=== PATIENT | female | born 2005 | race Asian ===

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

== ENCOUNTER 2024-03-26 08:05 | Outpatient (AMB) | payer OTHER, SELFPAY ==
--- NOTE | 2024-03-26 08:37 | MHC.OFFVIS ---
Vital Signs 03/26/24 08:54 Height 5 ft 6 in Weight 135 lb BMI 21.8 BP 110/78 Blood Pressure Location Lt brachial Pulse 72 Pulse Source Palpation Intake Visit Reasons: Neck pain Intake Note: Patient presents for neck pain. Search Engine Optimizer Required: No Allergies Seasonal Allergies Allergy (Mild, Verified 03/26/24 08:38) Drowsy carrots Allergy (Mild, Uncoded 03/26/24 08:38) rash HPI Comments Details: 18y/o right handed female comes for further management of her TMJ , neck pain and cervical dystonia. She started with right jaw pain over 5 years ago after she completed her orthodontic treatment for supernumary and crowded teeth . she had procedure to remove her extra teeth and had braces for over 2 years . She started having intermittent right jaw pain with tightness in her TMG. For the past 2 years it has progressed with more intense pain in her jaws right temporal region , right neck and right posterior neck with severe headaches and difficulty opening her jaw. she takes advil or ibuprofen , warm compresses which helps intermittently she was also seen for PT , myofascial release , oral splints, mouth guards with only partial relief. she was evaluated at [facility] in Sep 29 and was treated with Botox to her neck muscles which helped her significantly she was unable to go for a second treatment as she was in school internationally and could not travel. [facility] Medical History (Updated 03/26/24 @ 08:50 by Cinthia Osman MD) TMJ arthralgia Cervical dystonia Migraine Anxiety Surgical History (Updated 03/26/24 @ 08:51 by Cinthia Osman MD) History of dental surgery Family History Mother HTN (hypertension) Father ANALI on CPAP Review of Systems ENT Reports Normal hearing present Neuro Reports Normal hearing present Physical Exam Const General: cooperative, healthy appearing and comfortable Nutritional Appearance: average body habitus Orientation/consciousness: patient oriented x3 Eyes Pupils: Equal, round and reactive pupils present Neuro Other: tightness and tenderness in right temporalis, right TMJ Right splenius, levator trapezius and semispinalis with mild restricted range of motion General: patient oriented x3, gait normal, tone normal, moves all extremities and no focal motor deficits Cranial nerves: Yes Facial sensation intact/muscles of mastication intact, Yes Equal, round and reactive pupils present, Yes Bilaterally intact EOM present, Yes Nystagmus not present, Yes Normal facial strength present, Yes Midline tongue present, Yes Symmetric palate elevation present, Yes Normal hearing present and Yes Ability to bilaterally elevate shoulders present Cognition (Neuro): normal cognition Gait exam (Neuro): Normal gait present Motor exam (neuro): 5/5 motor strength present throughout and Normal motor muscle tone present throughout Deep tendon reflexes (DTR's): Right triceps reflex intensity grade: 2+, Left triceps reflex intensity grade: 2+, Rt Biceps (C5, C6): 2+, Left biceps reflex intensity grade: 2+, Right brachioradialis reflex intensity grade: 2+, Left brachioradialis reflex intensity grade: 2+, Right patellar reflex intensity grade: 2+, Left patellar reflex intensity grade: 2+ and Right ankle reflex intensity grade: 2+ Coordination: [id number] test normal Results Reviewed Results Reviewed: MRI 2021 Right TMJ: Torn disc with anterior displacement which does not recapture with mouth opening. Mild degenerative changes. Assessment & Plan Assessment & Plan (1) Cervical dystonia: Code(s): G24.3 - Spasmodic torticollis Category: Medical (2) TMJ arthralgia: Code(s): M26.629 - Arthralgia of temporomandibular joint, unspecified side Category: Medical Plan continue cyclobenzaprine as needed 5mg qhs Advil as needed TMJ exercises I will restart her on BOTOX for cervical dystonia. Reviewed notes from [facility] Coding Level of Care Code New Pt Level 4 (50484) Diagnoses Cervical dystonia G24.3 TMJ arthralgia M26.629
[2024-03-26 08:54] VITALS: BP 110/78; PULSE 72; BMI 21.8
== END 2024-03-26 09:00 ==
PROVIDERS: PCP Pediatrics; Visit Provider Psychiatry & Neurology Neurology
DX: G24.3 Spasmodic torticollis (principal); M26.629 Arthralgia of temporomandibular joint, unspecified side
CPT/HCPCS: 99204

== ENCOUNTER → 2024-03-26 08:05 | Outpatient (BNVA) | payer OTHER, SELFPAY | PROVIDERS: PCP Pediatrics; Visit Provider Psychiatry & Neurology Neurology ==

== ENCOUNTER 2024-06-23 11:48 | Outpatient (AMB) | payer OTHER, SELFPAY ==
[2024-06-23 11:49] VITALS: BP 106/72
--- NOTE | 2024-06-23 11:49 | MHC.OFFVIS ---
Vital Signs 06/23/24 11:49 Height 5 ft 6 in BP 106/72 Blood Pressure Location Rt brachial Position Sitting Intake Visit Reasons: BOTOX Intake Note: Patient presents for botox injection Allergies Seasonal Allergies Allergy (Mild, Verified 06/23/24 11:53) Drowsy carrots Allergy (Mild, Uncoded 06/23/24 11:53) rash Medication List - Last Reconciled 06/23/24 by Cinthia Osman MD cyclobenzaprine 5 mg PO BEDTIME PRN escitalopram oxalate (Lexapro) 10 mg PO DAILY 90 days etonogestrel-ethinyl estradiol 0.12-0.015 mg/24 hr (NuvaRing) 1 vag ring vaginal Q4W magnesium oxide 400 mg PO DAILY riboflavin (vitamin B2) 400 mg PO DAILY HPI Comments Details: 19 y/o female comes for treatment of her cervical dystonia ? Side effects including spread of toxin effect, dysphagia, breathing difficulties , bronchitis etc was discussed in detail and the patient agreed to the procedure.An informed consent was obtained ??? Botulinum toxin type A 100units X 2 -was diluted with 4 cc of normal saline at a concentration of 25 units in 0.5cc saline. Lot number [id number] expiration 08/2026 ??? Muscles injected ??? raudel Trapezius- 30 units each ??? Right levator 50units each ??? Right masseter -20 units Right Temporlais 20 units ??? Total used 120 units Discarded 80 units [facility] Medical History TMJ arthralgia Cervical dystonia Migraine Anxiety Surgical History History of dental surgery Family History Mother HTN (hypertension) Father ANALI on CPAP Review of Systems ENT Reports Normal hearing present Neuro Reports Normal hearing present Physical Exam Vital Signs: Last Vital Signs BP 106/72 06/23/24 11:49 Const General: cooperative, healthy appearing and comfortable Nutritional Appearance: average body habitus Orientation/consciousness: patient oriented x3 Eyes Pupils: Equal, round and reactive pupils present Neuro Other: tightness and tenderness in right temporalis, right TMJ Right splenius, levator trapezius and semispinalis with mild restricted range of motion General: patient oriented x3, gait normal, tone normal, moves all extremities and no focal motor deficits Cranial nerves: Yes Facial sensation intact/muscles of mastication intact, Yes Equal, round and reactive pupils present, Yes Bilaterally intact EOM present, Yes Nystagmus not present, Yes Normal facial strength present, Yes Midline tongue present, Yes Symmetric palate elevation present, Yes Normal hearing present and Yes Ability to bilaterally elevate shoulders present Cognition (Neuro): normal cognition Gait exam (Neuro): Normal gait present Motor exam (neuro): 5/5 motor strength present throughout and Normal motor muscle tone present throughout Deep tendon reflexes (DTR's): Right triceps reflex intensity grade: 2+, Left triceps reflex intensity grade: 2+, Rt Biceps (C5, C6): 2+, Left biceps reflex intensity grade: 2+, Right brachioradialis reflex intensity grade: 2+, Left brachioradialis reflex intensity grade: 2+, Right patellar reflex intensity grade: 2+, Left patellar reflex intensity grade: 2+ and Right ankle reflex intensity grade: 2+ Coordination: [id number] test normal Office Procedures Botulinum toxin Injection 57439 - Dystonia Procedure code (CPT) selection complete Office Meds onabotulinumtoxinA 100 unit solution for injection Performing Provider: Cinthia Osman MD Performing Location: [facility] Administered by: Cinthia Osman MD on 06/23/24 12:27 Dose Route Admin Location Dispensed Lot Number Expiration Date [facility] Loom Tuner 120 unit IM 200 units [id number] 08/29/26 7054-2918-27 ALLERGAN/BOTOX Comments: see HPI Assessment & Plan Assessment & Plan (1) Cervical dystonia: Code(s): G24.3 - Spasmodic torticollis Category: Medical (2) TMJ arthralgia: Code(s): M26.629 - Arthralgia of temporomandibular joint, unspecified side Category: Medical Plan continue cyclobenzaprine as needed 5mg qhs Advil as needed TMJ exercises Patient tolerated the procedure well she will call with any side effects Orders: Orders AMB Botulinum toxin Injection Today G24.3 - Spasmodic torticollis Medications: New onabotulinumtoxinA 100 units IM ONCE 2 ea 0RF spasmodic torticollis G24.3 - Spasmodic torticollis Coding Level of Care Code Est Pt Level 1 (62472) Diagnoses Cervical dystonia G24.3 TMJ arthralgia M26.629 CPT Codes Botox Injection - Botox 4: 19297 - Dystonia ([id number])
== END 2024-06-23 16:06 | disposition home or self-care (01) ==
PROVIDERS: PCP Pediatrics; Visit Provider Psychiatry & Neurology Neurology
DX: G24.3 Spasmodic torticollis (principal)
CPT/HCPCS: 64616

== ENCOUNTER → 2024-06-23 11:48 | Outpatient (BNVA) | payer OTHER, SELFPAY | PROVIDERS: PCP Pediatrics; Visit Provider Psychiatry & Neurology Neurology | DX: G24.3 Spasmodic torticollis (principal); M26.629 Arthralgia of temporomandibular joint, unspecified side | CPT/HCPCS: 64616; 99211; J0585 ==

== ENCOUNTER 2025-01-12 13:02 | Outpatient (AMB) | payer OTHER, SELFPAY ==
--- NOTE | 2025-01-12 13:04 | A.OFFVIS_ITS ---
Vital Signs 01/12/25 13:05 Height 5 ft 6 in Weight 135 lb BMI 21.8 BP 108/70 Blood Pressure Location Rt brachial Position Sitting Pulse 84 Pulse Source Pulse Oximeter Pulse Oximetry (%) 100 Oxygen Delivery Method Room Air Intake Visit Reasons: Botox Intake Note: Patient presents for xymen injection Allergies Seasonal Allergies Allergy (Mild, Verified 01/12/25 13:07) Drowsy carrots Allergy (Mild, Uncoded 01/12/25 13:07) rash Medication List - Last Reconciled 01/12/25 by Cinthia Osman MD cyclobenzaprine 5 mg PO BEDTIME PRN escitalopram oxalate (Lexapro) 10 mg PO DAILY 90 days etonogestrel-ethinyl estradiol 0.12-0.015 mg/24 hr (NuvaRing) 1 vag ring vaginal Q4W incobotulinumtoxinA (Xeomin) to be injected by physician to tight neck muscles intramuscularly; magnesium oxide 400 mg PO DAILY riboflavin (vitamin B2) 400 mg PO DAILY HPI Comments Details: 19 y/o female comes for treatment of her cervical dystonia ? Side effects including spread of toxin effect, dysphagia, breathing difficulties , bronchitis etc was discussed in detail and the patient agreed to the procedure.An informed consent was obtained ??? Botulinum toxin type A 100units X 2 -was diluted with 4 cc of normal saline at a concentration of 25 units in 0.5cc saline. Lot number [id number] expiration 07/2026 ??? Muscles injected ??? raudel Trapezius- 30 units each ??? Right levator 50units each ??? Right masseter -20 units Right Temporlais 20 units ??? Total used 120 units Discarded 80 units PFSH Medical History Skin rash TMJ arthralgia Cervical dystonia Migraine Anxiety Surgical History History of dental surgery Family History Mother HTN (hypertension) Father ANALI on CPAP Review of Systems ENT Reports Normal hearing present Neuro Reports Normal hearing present Physical Exam Vital Signs: Last Vital Signs Pulse 84 01/12/25 13:05 BP 108/70 01/12/25 13:05 Pulse Ox 100 01/12/25 13:05 Oxygen Delivery Method Room Air 01/12/25 13:05 BMI result Body Mass Index 21.8 Const General: cooperative, healthy appearing and comfortable Nutritional Appearance: average body habitus Orientation/consciousness: patient oriented x3 Eyes Pupils: Equal, round and reactive pupils present Neuro Other: tightness and tenderness in right temporalis, right TMJ Right splenius, levator trapezius and semispinalis with mild restricted range of motion General: patient oriented x3, gait normal, tone normal, moves all extremities and no focal motor deficits Cranial nerves: Yes Facial sensation intact/muscles of mastication intact, Yes Equal, round and reactive pupils present, Yes Bilaterally intact EOM present, Yes Nystagmus not present, Yes Normal facial strength present, Yes Midline tongue present, Yes Symmetric palate elevation present, Yes Normal hearing present and Yes Ability to bilaterally elevate shoulders present Cognition (Neuro): normal cognition Gait exam (Neuro): Normal gait present Motor exam (neuro): 5/5 motor strength present throughout and Normal motor muscle tone present throughout Deep tendon reflexes (DTR's): Right triceps reflex intensity grade: 2+, Left triceps reflex intensity grade: 2+, Rt Biceps (C5, C6): 2+, Left biceps reflex intensity grade: 2+, Right brachioradialis reflex intensity grade: 2+, Left brachioradialis reflex intensity grade: 2+, Right patellar reflex intensity grade: 2+, Left patellar reflex intensity grade: 2+ and Right ankle reflex intensity grade: 2+ Coordination: [id number] test normal Office Procedures Botulinum toxin Injection 20711 - Dystonia Procedure code (CPT) selection complete Office Meds onabotulinumtoxinA 200 unit solution for injection Performing Provider: Cinthia Osman MD Performing Location: [facility] [place] [facility] Administered by: Cinthia Osman MD on 01/12/25 13:26 Dose Route Admin Location Dispensed Lot Number Expiration Date [facility] Quiller Operator 120 unit subcut 200 units [id number] ALLERGAN/BOTOX Comments: see hpi Assessment & Plan Assessment & Plan (1) Cervical dystonia: Code(s): G24.3 - Spasmodic torticollis Category: Medical (2) TMJ arthralgia: Code(s): M26.629 - Arthralgia of temporomandibular joint, unspecified side Category: Medical Plan continue cyclobenzaprine as needed 5mg qhs Advil as needed TMJ exercises Patient tolerated the procedure well she will call with any side effects Orders: Orders AMB Botulinum toxin Injection - Patient Supplied N/C Today G24.3 - Spasmodic torticollis Medications: New onabotulinumtoxinA 200 units subcut ONCE 1 ea 0RF cervical dystonia G24.3 - Spasmodic torticollis Coding Level of Care Code Est Pt Level 1 (34027) Diagnoses Cervical dystonia G24.3 TMJ arthralgia M26.629 CPT Codes Botox Injection - Botox 4: 05670 - Dystonia ([id number])
[2025-01-12 13:05] VITALS: BP 108/70; PULSE 84; O2SAT 100; BMI 21.8
== END 2025-01-12 13:37 | disposition home or self-care (01) ==
LOC: HO.HSMS 13:03
PROVIDERS: PCP Pediatrics; Visit Provider Psychiatry & Neurology Neurology
DX: G24.3 Spasmodic torticollis (principal)
CPT/HCPCS: 64616

== ENCOUNTER → 2025-01-12 13:02 | Outpatient (BNVA) | payer OTHER, SELFPAY | PROVIDERS: PCP Pediatrics; Visit Provider Psychiatry & Neurology Neurology | DX: G24.3 Spasmodic torticollis (principal); M26.629 Arthralgia of temporomandibular joint, unspecified side | CPT/HCPCS: 64616; 99211; J0585 ==

== ENCOUNTER 2025-06-16 13:54 | Outpatient (AMB) | payer OTHER, SELFPAY ==
--- NOTE | 2025-06-16 13:55 | A.OFFVIS_ITS ---
Vital Signs 06/16/25 14:08 Height 5 ft 6 in Weight 139 lb 6 oz BMI 22.5 BP 110/64 Blood Pressure Location Rt brachial Position Sitting Pulse 62 Pulse Source Pulse Oximeter Pulse Oximetry (%) 98 Oxygen Delivery Method Room Air Intake Visit Reasons: Botox Intake Note: Botox Production Supv Required: No Accompanied by: Self / Same As Patient Allergies Seasonal Allergies Allergy (Mild, Verified 06/16/25 13:55) Drowsy carrots Allergy (Mild, Uncoded 01/12/25 13:07) rash Medication List - Last Reconciled 06/16/25 by Cinthia Osman MD cyclobenzaprine 5 mg PO BEDTIME PRN escitalopram oxalate (Lexapro) 10 mg PO DAILY 90 days incobotulinumtoxinA (Xeomin) to be injected by physician to tight neck muscles intramuscularly; magnesium oxide 400 mg PO DAILY riboflavin (vitamin B2) 400 mg PO DAILY HPI Comments Details: 19 y/o female comes for treatment of her cervical dystonia ? Side effects including spread of toxin effect, dysphagia, breathing difficulties , bronchitis etc was discussed in detail and the patient agreed to the procedure.An informed consent was obtained ??? Botulinum toxin type A 200units -was diluted with 4 cc of normal saline at a concentration of 25 units in 0.5cc saline. Lot number [id number] expiration 07/2026 ??? Muscles injected ??? nik Trapezius- 30 units each ??? Right levator 50units each Left levator 30 units ??? Right masseter -20 units Nik Temporlais 20 units ??? Total used 170 units Discarded 20 units PFSH Medical History Skin rash TMJ arthralgia Cervical dystonia Migraine Anxiety Surgical History History of dental surgery Family History Mother HTN (hypertension) Father ANALI on CPAP Review of Systems ENT Reports Normal hearing present Neuro Reports Normal hearing present Physical Exam Vital Signs: Last Vital Signs Pulse 62 06/16/25 14:08 BP 110/64 06/16/25 14:08 Pulse Ox 98 06/16/25 14:08 Oxygen Delivery Method Room Air 06/16/25 14:08 BMI result Body Mass Index 22.5 Const General: cooperative, healthy appearing and comfortable Nutritional Appearance: average body habitus Orientation/consciousness: patient oriented x3 Eyes Pupils: Equal, round and reactive pupils present Neuro Other: tightness and tenderness in right temporalis, right TMJ Right splenius, levator trapezius and semispinalis with mild restricted range of motion General: patient oriented x3, gait normal, tone normal, moves all extremities and no focal motor deficits Cranial nerves: Yes Facial sensation intact/muscles of mastication intact, Yes Equal, round and reactive pupils present, Yes Bilaterally intact EOM present, Yes Nystagmus not present, Yes Normal facial strength present, Yes Midline tongue present, Yes Symmetric palate elevation present, Yes Normal hearing present and Yes Ability to bilaterally elevate shoulders present Cognition (Neuro): normal cognition Gait exam (Neuro): Normal gait present Motor exam (neuro): 5/5 motor strength present throughout and Normal motor muscle tone present throughout Coordination: [id number] test normal Office Procedures Botulinum toxin Injection 75574 - Dystonia Procedure code (CPT) selection complete Office Meds onabotulinumtoxinA 200 unit solution for injection Performing Provider: Cinthia Osman MD [place]forming [place] [facility] [place] [facility] Administered by: Cinthia Osman MD on 06/16/25 14:35 Dose Route Admin Location Dispensed Lot Number Expiration Date [facility] School Bus Driver/Teacher Assistant 170 unit subcut 200 units [id number] ALLERGAN /BOTOX Total Dispensed Waste 200 units 15 % Comments: see HPI Assessment & Plan Assessment & Plan (1) Cervical dystonia: Code(s): G24.3 - Spasmodic torticollis Category: Medical (2) TMJ arthralgia: Code(s): M26.629 - Arthralgia of temporomandibular joint, unspecified side Category: Medical Plan continue cyclobenzaprine as needed 5mg qhs Advil as needed TMJ exercises Patient tolerated the procedure well she will call with any side effects Orders: Orders AMB Botulinum toxin Injection - Patient Supplied N/C Today G24.3 - Spasmodic torticollis Coding Level of Care Code Est Pt Level 1 (11015) Diagnoses Cervical dystonia G24.3 TMJ arthralgia M26.629 CPT Codes Botox Injection - Botox 4: 06612 - Dystonia ([id number])
[2025-06-16 14:08] VITALS: BP 110/64; PULSE 62; O2SAT 98; BMI 22.5
--- OUTSIDE RECORDS SUMMARY | 2025-06-16 15:12 | XMS_ITS | Clinical Summary ---
Author Organization [facility] Address [address] [address] Care Team Providers Care Surface Water Manager Name Role Phone Otf Gutierrez MD Primary Care Provider Unavailab le Medications adapalene (DIFFERIN) 0.1 % cream by Other route 1 (one) time each day 7 Active cyclobenzaprine (FLEXERIL) 5 MG tablet Take 1 tablet (5 mg total) by mouth 3 (three) times a day if needed for muscle spasms for up to 10 days 30 tablet 2 Active loratadine (Claritin) 10 MG tablet Take 1 tablet (10 mg total) by mouth 1 (one) time each day 30 tablet 11 2 Active escitalopram (Lexapro) 10 MG tablet Take 1 tablet (10 mg total) by mouth 1 (one) time each day 90 tablet 3 2 Active Sodium Fluoride 1.1 % gel Apply 1 application to teeth 1 (one) time each day 56 g 3 3 Active Social History Tobacco Use Types Packs/Day Years Used Date Smoking Tobacco: Never Assessed Comments Unknown Sex and Gender Information Value Date Recorded Sex Assigned at Not on file Legal Sex Female 4:45 PM EST Gender Identity Not on file Sexual Orientation Not on file Plan of Treatment Health Maintenance Due Date Last Done Comments Hepatitis B Vaccine (1 of 3 - 19+ 3-dose series) 04/13 Pneumococcal Vaccine: Peds ( 0 to 5 Years) and At-Risk Patients (6 to 49 Years) (1 of 2 - PCV) 2023 Influenza Vaccine (#1) 2025 Care Teams Surface Water Manager Relationship Specialty Start Date End Date Otf Gutierrez MD PCP - General Nephrology 06/14/22
== END 2025-06-16 14:41 | disposition home or self-care (01) ==
LOC: HO.HSMS 13:54
PROVIDERS: PCP Pediatrics; Visit Provider Psychiatry & Neurology Neurology
DX: G24.3 Spasmodic torticollis (principal)
CPT/HCPCS: 64616; 99499

== ENCOUNTER → 2025-06-16 13:54 | Outpatient (BNVA) | payer OTHER, SELFPAY | PROVIDERS: PCP Pediatrics; Visit Provider Psychiatry & Neurology Neurology | DX: G24.3 Spasmodic torticollis (principal); M26.629 Arthralgia of temporomandibular joint, unspecified side | CPT/HCPCS: 64616; J0585 ==

== ENCOUNTER 2025-07-03 13:30 | Outpatient (REF) | payer OTHER, SELFPAY ==
[2025-07-03 17:56] LABS: MANUAL DIFF FLAG NO
[2025-07-03 18:03] LABS: Hematocrit 37.4 % (37.0-47.0); Hemoglobin 12.4 g/dl (12.0-16.0); Imm Gran Abs Auto 0.01 X10*3/uL (0.00-0.03); Imm Gran Pct Auto 0.2 % (0.0-0.4); Lymphocytes Absolute Auto 2.4 X10*3/uL (1.2-4.9); Mean Corpuscular HGB Conc 33.2 g/dl (31.0-35.0); Mean Corpuscular Hemoglobin 29.5 pg (27.0-33.0); Mean Corpuscular Volume 89.0 fL (80.0-98.0); NRBC Abs Auto 0.000 X10*3/uL (0.0-0.012); NRBC Pct Auto 0.0 /100WBC (0.0-0.2); Platelet Count 187 X10*3/uL (160-400); Red Blood Count 4.20 X10*6/uL (4.20-5.50); White Blood Count 6.2 X10*3/uL (4.8-10.8)
[2025-07-03 18:09] LABS: Total Hemoglobin (HGBA1C) 3226.9199 umol/L
[2025-07-03 18:20] LABS: Appearance Urine Clear; Glucose Urine UA Negative (Negative); PH 6.0 (5.0-9.0); Specific Gravity - Urine 1.020 (1.005-1.025)
[2025-07-03 18:28] LABS: Alanine Aminotransferase 15 U/L (0-31); Albumin Level 4.3 g/dL (3.5-5.0); Alkaline Phosphatase 52 U/L (39-117); Anion Gap 12 (12-20); Aspartate Amino Transferase 27 U/L (5-31); Blood Urea Nitrogen 12 mg/dL (9-16); Calcium 8.9 mg/dL (8.4-10.2); Carbon Dioxide 25 mmol/L (22-29); Chloride 105 mmol/L (96-108); Cholesterol 136 mg/dL (<200); Estimated Glomerular Filt Rate > 60; HDL Cholesterol 52 mg/dL (>40); Magnesium 1.8 mg/dL (1.6-2.6); Potassium 3.9 mmol/L (3.3-5.1); Sodium 138 mmol/L (135-145); Total Protein 7.8 g/dL (6.5-8.0); Triglycerides 40 mg/dL (<150)
[2025-07-03 18:35] LABS: Ferritin 15 ng/mL (10-122)
[2025-07-03 18:51] LABS: Folate 5.8 ng/mL (> or = 4.0); Vitamin B12 525 pg/mL (200-900)
[2025-07-03 21:28] LABS: CT PCR Urine NOT DETECTED (Not Detect.); NG PCR Urine NOT DETECTED (Not Detect.)
[2025-07-06 03:38] LABS: Syphilis Screen Nonreactive (Nonreactive)
[2025-07-06 03:49] LABS: HBsAGNum1 0.36 S/CO (0.00-0.99); HIV Num 1 0.05 S/CO (0.00-0.99); Hepatitis B Surface Antigen Negative (Negative); ~HepC Num1 0.15 S/CO (0.00-0.79); ~Hepatitis B Surface Antibody REACTIVE (Nonreactive); ~Hepatitis C Antibody Nonreactive (Nonreactive)
[2025-07-08 15:34] LABS: Vitamin D 25-OH, D2 <4 ng/mL; Vitamin D 25-OH, D3 24 ng/mL; Vitamin D 25-OH, Total 24 ng/mL (30-100)
[2025-07-08 17:48] LABS: Chlamydia Pneumoniae Interp. Past Infection; Chlamydia Trachomatis IgA <1:16 titer (<1:16)
== END 2025-07-03 13:31 | disposition home or self-care (01) ==
LOC: HO.HKASLDS 13:30
PROVIDERS: Psychiatry & Neurology Neurology; PCP Pediatrics; Visit Provider Student in an Organized Health Care Education/Training Program
DX: Z01.89 Encounter for other specified special examinations (principal); Z00.00 Encounter for general adult medical examination without abnormal findings; Z71.89 Other specified counseling; Z13.220 Encounter for screening for lipoid disorders; Z13.1 Encounter for screening for diabetes mellitus; Z13.6 Encounter for screening for cardiovascular disorders; J45.20 Mild intermittent asthma, uncomplicated; Z20.2 Contact with and (suspected) exposure to infections with a predominantly sexual mode of transmission; J35.01 Chronic tonsillitis; R53.83 Other fatigue; G43.909 Migraine, unspecified, not intractable, without status migrainosus
CPT/HCPCS: 36415; 80053; 80061; 81003; 82306; 82607; 82728; 82746; 83036; 83735; 84443; 85025; 86631; 86632; 86706; 86780; 86803; 87340; 87389; 87491; 87591; 96127

== ENCOUNTER 2025-07-03 13:30 | Outpatient (AMB) | payer OTHER, SELFPAY ==
--- NOTE | 2025-07-03 11:49 | MHC.PC.OV ---
Intake Visit Reasons: Establish Care/ENT referral Allergies Seasonal Allergies Allergy (Mild, Verified 06/16/25 13:55) Drowsy carrots Allergy (Mild, Uncoded 01/12/25 13:07) rash PFSH Medical History Skin rash TMJ arthralgia Cervical dystonia Migraine Anxiety Surgical History History of dental surgery Family History Mother HTN (hypertension) Father ANALI on CPAP Coding
--- NOTE | 2025-07-03 13:36 | MHC.PC.OV ---
Vital Signs 07/03/25 13:46 Height 5 ft 5.75 in Weight 138 lb 2 oz BMI 22.5 BP 96/76 Blood Pressure Location Lt brachial Position Sitting Respiration 16 Pulse 67 Pulse Source Pulse Oximeter Temp 97.7 F Temp Source Oral Pulse Oximetry (%) 99 Oxygen Delivery Method Room Air Intake Visit Reasons: Establish Care/ENT referral Intake Note: pt here for a check up. Lab work requested by pt. old PCP DR. Sesay prescribe medications. Manager Of [employer] Required: No Accompanied by: Self / Same As Patient Allergies Seasonal Allergies Allergy (Mild, Verified 07/03/25 13:37) Drowsy carrots Allergy (Mild, Uncoded 01/12/25 13:07) rash Medication List - Last Reconciled 07/03/25 by Jean Carlos Hensley MD cyclobenzaprine 5 mg PO BEDTIME PRN escitalopram oxalate (Lexapro) 10 mg PO DAILY 90 days incobotulinumtoxinA (Xeomin) to be injected by physician to tight neck muscles intramuscularly; riboflavin (vitamin B2) 400 mg PO DAILY Tobacco use date assessed: 07/03/25 Dental Screening Dental Screen Date: 07/03/25 Did you have a dental visit in the last 12 months?: No Did you have a dental problem in the last 6 months where you did not have access to dental care?: No Was dental information given to patient?: Patient has dentist HPI HPI Comments History of Present Illness Details History of Present Illness The patient is a 20-year-old female presenting for a general checkup and evaluation of chronic tonsillitis. The patient reports a history of chronic tonsillitis with two episodes of tonsillitis requiring steroid treatment, the first occurring in November 2023 and the second in early spring 2024. She continues to experience symptoms of inflammation and excessive phlegm, despite no recent infections. The patient has a history of exercise-induced asthma, with the last flare-up occurring approximately a year ago during a flight. She uses an inhaler infrequently, primarily before engaging in activities like soccer or long-distance running. The patient has been managing temporomandibular joint disorder (TMJ) since middle school, with symptoms worsening through high school and college. She has received Botox injections for TMJ, which initially provided relief for a few months, but the effectiveness has decreased over time. Stress exacerbates her TMJ symptoms, and she experiences associated migraines, which she manages by resting in a dark, quiet environment. The patient reports a skin condition suspected to be dermatitis, for which she was prescribed a steroid cream by a office administrative assistant a year ago. The condition flares up frequently, and she uses Aquaphor and hydrocortisone cream intermittently for management. The patient has a history of iron deficiency anemia, previously managed with iron supplements and dietary changes. She attributes her low iron levels to heavy menstrual bleeding. Review of Systems - HEENT: Reports chronic tonsillitis with phlegm. Denies smoking or vaping. - Respiratory: Reports exercise-induced asthma, infrequent inhaler use. Denies recent asthma exacerbations. - Musculoskeletal: Reports temporomandibular joint disorder with associated migraines. - Dermatological: Reports dermatitis with frequent flare-ups. - Hematological: Reports history of iron deficiency anemia, heavy menstrual bleeding. 10-point ROS reviewed and negative except as noted in HPI Physical Exam Gen: NAD, A&O x3 HEENT: NC/AT, PERRLA, EOMI, OP clear, MMM, tonsils inflamed Neck: Supple, no LAD/JVD/bruit, Botox injections for TMJ issues COR: RRR, S1 S2, no m/r/g Lungs: CTAB, BS equal bilat, no r/r/w Abd: NT/ND, +BS, no HSM, no mass/rebound/guarding Ext: No CCE, 2+ pulses Neuro: CN II-XII grossly intact, motor/sensory intact, reflexes 2+, gait normal, history of migraines Skin: WDI, no rash, ongoing skin issue possibly dermatitis, using Aquaphor and hydrocortisone as needed Assessment and Plan 1. Chronic tonsillitis Referral to an ENT specialist for evaluation and potential tonsillectomy is planned due to persistent symptoms. 2. Exercise-induced asthma Continued use of an inhaler as needed is advised, with attention to triggers during physical exertion. 3. Temporomandibular joint disorder TMJ) Further evaluation by a specialist and stress management are recommended due to decreasing effectiveness of Botox injections. 4. Migraine Management includes rest in a dark, quiet environment and occasional use of Tylenol for migraines associated with TMJ. 5. Dermatitis Continued use of moisturizers and intermittent steroid cream application is advised for dermatitis management. 6. Iron deficiency anemia An iron panel and dietary modifications are planned to address low iron levels due to heavy menstrual bleeding. 7. Preventative care STI screening and comprehensive blood work including CBC, metabolic panel, iron panel, A1c, lipid panel, and TSH are planned. Patient Instructions - Follow up with ENT specialist for tonsil evaluation. - Use inhaler as needed for asthma, especially before exercise. - Manage stress to help with TMJ symptoms. - Rest in a dark, quiet room for migraines, and use Tylenol if needed. - Use moisturizers and hydrocortisone cream for dermatitis as directed. - Maintain a diet rich in iron to manage anemia. - Complete all recommended blood tests and screenings. [facility] Medical History (Updated 07/03/25 @ 14:13 by Jean Carlos Hensley MD) History of anemia Asthma, mild intermittent Skin rash TMJ arthralgia Cervical dystonia Migraine Anxiety Surgical History History of dental surgery Family History Mother HTN (hypertension) Father ANALI on CPAP Social History (Updated 07/03/25 @ 13:38 by Oli Olivas MA) Housing: Apartment Alcohol intake: current Alcohol intake frequency: holidays/special occasions only Patient Tobacco Use Status: Never used Tobacco service: No Current occupational status: student Cognitive needs: No Hearing needs: No Vision needs: Yes (rx glasses/ contacts) Questionnaire PHQ-9 Over the last 2 weeks, how often have you been bothered by any of the following problems? 1. Little interest or pleasure in doing things: not at all 2. Feeling down, depressed, or hopeless: not at all 3. Trouble falling or staying asleep, or sleeping too much: not at all 4. Feeling tired or having little energy: not at all 5. Poor appetite or overeating: not at all 6. Feeling bad about yourself - or that you are a failure or have let yourself or your family down: not at all 7. Trouble concentrating on things, such as reading the newspaper or watching television: not at all 8. Moving or speaking so slowly that other people could have noticed. Or the opposite - being so fidgety or restless that you have been moving around a lot more than usual: not at all 9. Thoughts that you would be better off or of hurting yourself in some way: not at all Total score: 0 Source: Developed by Drs. Colin Pappas, Beulah Castillo, Jerrell Ray and colleagues, with an educational phoenix from [employer]. Thrive Questionnaire Date Thrive assessed: 07/03/25 I am a: Patient What is your living situation today?: I have a steady place to live Within the past 12 months, did the food you bought not last and you didn't have the money to get more?: I choose not to answer this question Within the past 12 months, did you worry whether your food would run out before you got money to buy more?: I choose not to answer this question Do you have trouble paying for medicines?: No Do you have trouble getting transportation to medical appointments?: No Do you have trouble taking care of your child, family member or friend?: No Do you have trouble with day-to-day activities such as bathing, preparing meals, shopping, managing finances, etc.?: No Are you currently unemployed and looking for a job?: No Are you interested in more education?: No Please select the resources that you would like help with: None Currently or been in a relationship where the following occur: No concerns reported THRIVE Score: 0 AUDIT C Alcohol Use Questionnaire (AUDIT-C) 1. How often do you have a drink containing alcohol?: Monthly or less 2. How many drinks containing alcohol do you have on a typical day when you are drinking?: 1 or 2 3. How often do you have six or more drinks on one occasion?: Never Total Score: 1 KENYATTA-7 AMB Questionnaire KENYATTA-7 Date KENYATTA - 7 assessed: 07/03/25 Feeling nervous, anxious, or on edge: 0 = Not at all Not being able to stop or control worryin = Not at all Worrying too much about different things: 0 = Not at all Trouble relaxin = Not at all Being so restless that it is hard to sit still: 0 = Not at all Becoming easily annoyed or irritable: 0 = Not at all Feeling afraid as if something awful might happen: 0 = Not at all Total KENYATTA-7 score (0-4 normal; 5-9 mild; 10-14 moderate; 15-21 severe): 0 Source: Developed by Drs. Colin Pappas, Beulah Castillo, Jerrell Ray and colleagues, with an educational phoenix from [employer]. Physical exam (Primary Care) Tobacco/Smoking Status: Tobacco use Status Patient Tobacco Use Status Never used Tobacco 07/03/25 13:38 Currently or been in a relationship where the following occur: No concerns reported Coding Level of Care Code New Pt Level 3 (72476) Diagnoses Regular check-up Z00.00 Routine lab draw Z01.89 Other specified counseling Z71.89 Screening for lipoid disorders Z13.220 Screening for diabetes mellitus Z13.1 Hypertension screen Z13.6 Asthma, mild intermittent J45.20 Chronic tonsillitis J35.01 Routine screening for STI (sexually transmitted infection) Z11.3 Assessment & Plan Assessment & Plan (1) Regular check-up: Code(s): Z00.00 - Encounter for general adult medical examination without abnormal findings (2) Routine lab draw: Code(s): Z01.89 - Encounter for other specified special examinations (3) Other specified counseling: Code(s): Z71.89 - Other specified counseling (4) Screening for lipoid disorders: Code(s): Z13.220 - Encounter for screening for lipoid disorders (5) Screening for diabetes mellitus: Code(s): Z13.1 - Encounter for screening for diabetes mellitus (6) Hypertension screen: Code(s): Z13.6 - Encounter for screening for cardiovascular disorders (7) Asthma, mild intermittent: Code(s): J45.20 - Mild intermittent asthma, uncomplicated Category: Medical (8) Chronic tonsillitis: Code(s): J35.01 - Chronic tonsillitis (9) Routine screening for STI (sexually transmitted infection): Code(s): Z11.3 - Encounter for screening for infections with a predominantly sexual mode of transmission Plan Orders: Orders Hemoglobin A1c Today Z00.00 - Encounter for general adult medical examination without abnormal findings, Z01.89 - Encounter for other specified special examinations, Z13.1 - Encounter for screening for diabetes mellitus, Z13.220 - Encounter for screening for lipoid disorders Hepatitis B Surface Antibody Today Z00.00 - Encounter for general adult medical examination without abnormal findings, Z01.89 - Encounter for other specified special examinations, Z13.1 - Encounter for screening for diabetes mellitus, Z13.220 - Encounter for screening for lipoid disorders Hepatitis B Surface Antigen Today Z00.00 - Encounter for general adult medical examination without abnormal findings, Z01.89 - Encounter for other specified special examinations, Z13.1 - Encounter for screening for diabetes mellitus, Z13.220 - Encounter for screening for lipoid disorders HIV Ab/Ag Today Z00.00 - Encounter for general adult medical examination without abnormal findings, Z01.89 - Encounter for other specified special examinations, Z13.1 - Encounter for screening for diabetes mellitus, Z13.220 - Encounter for screening for lipoid disorders Syphilis Screen Today Z00.00 - Encounter for general adult medical examination without abnormal findings, Z01.89 - Encounter for other specified special examinations, Z13.1 - Encounter for screening for diabetes mellitus, Z13.220 - Encounter for screening for lipoid disorders Magnesium Today Z00.00 - Encounter for general adult medical examination without abnormal findings, Z01.89 - Encounter for other specified special examinations, Z13.1 - Encounter for screening for diabetes mellitus, Z13.220 - Encounter for screening for lipoid disorders Chlamydia Species Ab Panel Today Z00.00 - Encounter for general adult medical examination without abnormal findings, Z01.89 - Encounter for other specified special examinations, Z13.1 - Encounter for screening for diabetes mellitus, Z13.220 - Encounter for screening for lipoid disorders CT NG by PCR Urine Today Z00.00 - Encounter for general adult medical examination without abnormal findings, Z01.89 - Encounter for other specified special examinations, Z13.1 - Encounter for screening for diabetes mellitus, Z13.220 - Encounter for screening for lipoid disorders Hepatitis C Antibody Today Z00.00 - Encounter for general adult medical examination without abnormal findings, Z01.89 - Encounter for other specified special examinations, Z13.1 - Encounter for screening for diabetes mellitus, Z13.220 - Encounter for screening for lipoid disorders Lipid Panel Today Z00.00 - Encounter for general adult medical examination without abnormal findings, Z01.89 - Encounter for other specified special examinations, Z13.1 - Encounter for screening for diabetes mellitus, Z13.220 - Encounter for screening for lipoid disorders UA CC w/rflx Micro + Cult Today Z00.00 - Encounter for general adult medical examination without abnormal findings, Z01.89 - Encounter for other specified special examinations, Z13.1 - Encounter for screening for diabetes mellitus, Z13.220 - Encounter for screening for lipoid disorders IRON PROFILE Today Z86.2 - Personal history of diseases of the blood and blood-forming organs and certain disorders involving the immune mechanism Referrals Ear/Nose/Throat Referral J35.1 - Hypertrophy of tonsils
[2025-07-03 13:46] VITALS: BP 96/76; PULSE 67; RESP 16; TEMP 36.5; O2SAT 99; BMI 22.5
--- OUTSIDE RECORDS SUMMARY | 2025-07-03 13:49 | XMS_ITS | Clinical Summary ---
Author Organization [facility] Facility Address [address] [address] Care Team Providers Care Computer Mechanic Name Role Phone Otf Gutierrez MD Primary [...] 2023 Influenza Vaccine (#1) 2025 Care Teams Computer Mechanic Relationship Specialty Start Date End Date Otf Gutierrez MD PCP - General Nephrology 06/14/22
== END 2025-07-03 14:07 | disposition home or self-care (01) ==
LOC: HO.HMCFMS 13:31
PROVIDERS: PCP Pediatrics; Visit Provider Student in an Organized Health Care Education/Training Program
DX: J45.20 Mild intermittent asthma, uncomplicated (principal); J35.01 Chronic tonsillitis; Z11.3 Encounter for screening for infections with a predominantly sexual mode of transmission